=== PATIENT | female | born 1960 | race African-American/Black ===

== ENCOUNTER 2020-06-10 23:07 | Observation (INO) ==
[2020-06-10] MEDS ORDERED: FUROSEMIDE 20 MG TABLET PO STA (23:44)
[2020-06-10] MEDS ORDERED: FUROSEMIDE 40 MG/4 ML VIAL IV STA (23:55)
[2020-06-11 00:01] LABS: Basophils % 0.3 % (0.0-0.8); Eosinophils # 0.1 10*3/uL (0.0-0.87); Eosinophils % 0.5 % (0.00-10.9); Hemoglobin 9.2 GM/DL (12.0-16.0); Immature Granulocytes % 0.4 %; Immature Granulocytes Absolute 0.04 #; Lymphocytes # 1.1 10*3/uL (1.4-4.0); Lymphocytes % 11.4 % (21.3-54.2); Mean Corpuscular HGB Conc 30.7 GM/DL (32-36); Mean Corpuscular Volume 60.9 FL (87-102); Mean Platelet Volume 9.1 FL (9.6-12.0); Monocytes % 7.6 % (1.7-12.7); Neutrophils % 79.8 % (38.7-73.9); Platelet Count 343 T/CUMM (130-400); Red Blood Count 4.93 MC/CUMM (3.8-5.5); Red Cell Distribution Width 18.8 % (9.3-17.3); White Blood Count 9.2 T/CUMM (4-12)
[2020-06-11 00:30] LABS: Alanine Aminotransferase 44 U/L (13-56); Albumin 2.9 G/DL (3.4-5.0); Alkaline Phosphatase 128 U/L (45-117); Aspartate Amino Transferase 35 U/L (0-37); Bilirubin,Total < 0.39 MG/DL (0.2-1.0); Blood Urea Nitrogen 11 MG/DL (7-18); Estimated Glom Filtration Rate 74 ML/MIN; Glucose 194 MG/DL (74-106); Osmolality,Calculated 276.8 MOS/KG (273-304); Total Protein 7.2 G/DL (6.4-8.3)
[2020-06-11 00:55] LABS: INR 0.9; PT Patient Result 10.1 SECS (9.8-11.9)
[2020-06-11] MEDS ORDERED: ACETAMINOPHEN 325 MG TABLET PO PRN (01:06)
[2020-06-11] MEDS ORDERED: GLUCAGON 1 MG VIAL IM PRN (01:06)
[2020-06-11] MEDS ORDERED: ONDANSETRON 4 MG/2 ML VIAL IV PRN (01:06)
[2020-06-11] MEDS ORDERED: DEXTROSE 50% 25 GM/50 ML VIAL IV PRN (01:06)
[2020-06-11] MEDS: ENOXAPARIN 40 MG/0.4 ML SYRINGE SUBCUT SCH (01:26)
[2020-06-11 02:11] LABS: Anisocytosis Slight
[2020-06-11 02:12] LABS: Schistocytes Few
[2020-06-11 02:13] LABS: Platelet Estimate Adequate
[2020-06-11 04:35] LABS: Basophils % 0.3 % (0.0-0.8); Eosinophils # 0.1 10*3/uL (0.0-0.87); Eosinophils % 0.7 % (0.00-10.9); Hematocrit 28.3 VOL% (35.7-47.0); Hemoglobin 8.7 GM/DL (12.0-16.0); Immature Granulocytes % 0.4 %; Immature Granulocytes Absolute 0.03 #; Lymphocytes % 14.1 % (21.3-54.2); Mean Corpuscular HGB Conc 30.7 GM/DL (32-36); Mean Platelet Volume 8.9 FL (9.6-12.0); Monocytes % 8.8 % (1.7-12.7); Neutrophils % 75.7 % (38.7-73.9); Platelet Count 301 T/CUMM (130-400); Red Blood Count 4.64 MC/CUMM (3.8-5.5); Red Cell Distribution Width 18.6 % (9.3-17.3); White Blood Count 7.2 T/CUMM (4-12)
[2020-06-11 04:52] LABS: Calcium 8.5 MG/DL (8.5-10.1); Risk Ratio 3.33
[2020-06-11] MEDS: FUROSEMIDE 40 MG/4 ML VIAL IV SCH ×2 (08:25→16:26)
[2020-06-11] MEDS: INSULIN REGULAR 100 UNIT/ML SUBCUT SCH ×4 (08:25→21:29)
[2020-06-11] MEDS: PANTOPRAZOLE 40 MG TABLET PO SCH (11:00)
[2020-06-11] MEDS: LOSARTAN 25 MG TABLET PO SCH ×2 (11:00→21:36)
[2020-06-11] MEDS: POTASSIUM CHLORIDE 20 MEQ TABLET PO SCH ×2 (11:00→21:37)
[2020-06-11] MEDS: hydrALAZINE 25 MG TABLET PO SCH ×3 (11:00→21:36)
[2020-06-11] MEDS: ASPIRIN EC 81 MG TABLET PO SCH (11:00)
[2020-06-11] MEDS: carvediloL 6.25 MG TABLET PO SCH ×2 (11:00→21:36)
[2020-06-11] MEDS ORDERED: PNEUMOCOCCAL VACCINE (13 VALENT) 0.5 ML SYRINGE IM ONE (16:53)
[2020-06-11] MEDS: ISOSORBIDE MONONITRATE 30 MG TABLET PO SCH (17:42)
[2020-06-11] MEDS: oxyCODONE/ACETAMINOPHEN 5-325 MG TABLET PO PRN (17:43)
[2020-06-11] MEDS ORDERED: INSULIN GLARGINE 100 UNIT/ML SUBCUT SCH (21:00)
[2020-06-11] MEDS: POTASSIUM CHLORIDE 20 MEQ TABLET PO PRN ×2 (21:37→23:50)
[2020-06-12] MEDS: POTASSIUM CHLORIDE 20 MEQ TABLET PO PRN ×2 (01:32→03:52)
[2020-06-12] MEDS: ENOXAPARIN 40 MG/0.4 ML SYRINGE SUBCUT SCH (01:32)
[2020-06-12] MEDS: oxyCODONE/ACETAMINOPHEN 5-325 MG TABLET PO PRN ×2 (03:51→12:43)
[2020-06-12] MEDS: carvediloL 6.25 MG TABLET PO SCH (09:07)
[2020-06-12] MEDS: ISOSORBIDE MONONITRATE 30 MG TABLET PO SCH (09:07)
[2020-06-12] MEDS: hydrALAZINE 25 MG TABLET PO SCH (09:07)
[2020-06-12] MEDS: INSULIN REGULAR 100 UNIT/ML SUBCUT SCH ×2 (09:07→12:15)
[2020-06-12] MEDS: PANTOPRAZOLE 40 MG TABLET PO SCH (09:07)
[2020-06-12] MEDS: POTASSIUM CHLORIDE 20 MEQ TABLET PO SCH (09:07)
[2020-06-12] MEDS: FUROSEMIDE 40 MG/4 ML VIAL IV SCH (09:08)
[2020-06-12] MEDS: LOSARTAN 25 MG TABLET PO SCH (09:08)
[2020-06-12] MEDS: ASPIRIN EC 81 MG TABLET PO SCH (09:08)
[2020-06-12 10:11] LABS: Calcium 7.7 MG/DL (8.5-10.1)
[2020-06-12 10:17] LABS: Basophils % 0.6 % (0.0-0.8); Eosinophils # 0.1 10*3/uL (0.0-0.87); Eosinophils % 1.7 % (0.00-10.9); Hematocrit 29.4 VOL% (35.7-47.0); Immature Granulocytes % 0.2 %; Immature Granulocytes Absolute 0.01 #; Lymphocytes # 2.1 10*3/uL (1.4-4.0); Lymphocytes % 43.7 % (21.3-54.2); Mean Corpuscular HGB Conc 29.9 GM/DL (32-36); Mean Corpuscular Volume 62.3 FL (87-102); Monocytes % 16.6 % (1.7-12.7); Neutrophils % 37.2 % (38.7-73.9); Platelet Count 302 T/CUMM (130-400); Red Blood Count 4.72 MC/CUMM (3.8-5.5); Red Cell Distribution Width 18.5 % (9.3-17.3); White Blood Count 4.7 T/CUMM (4-12)
[2020-06-12 10:18] LABS: Hemoglobin 8.8 GM/DL (12.0-16.0)
[2020-06-12 10:21] LABS: Atypical Lymphocytes Few; Band Neutrophils 1 % (0-10); Eosinophils 1 % (0-10); Hypochromasia 2+; Lymphocytes 41 % (20-55); Microcytosis 1+; Segmented Neutrophils 41 % (50-85); Total Cells Counted 100
[2020-06-12 10:22] LABS: Ovalocytes Slight; Platelet Estimate Normal
[2020-06-12 12:08] VITALS: BP 100/58
== END 2020-06-12 15:12 | disposition home or self-care (01) ==
LOC: N.ED 23:07 → N.EDINP 23:07 → N.TELES 06-11 17:08
PROVIDERS: ADMIT Internal Medicine; ATTEND Internal Medicine

== ENCOUNTER 2021-03-06 15:48 | Inpatient (IN) ==
[2021-03-06] MEDS ORDERED: ONDANSETRON 4 MG/2 ML VIAL IV PRN (20:31)
[2021-03-06] MEDS ORDERED: GLUCAGON 1 MG VIAL IM PRN ×2 (20:31)
[2021-03-06] MEDS ORDERED: ALBUTEROL 2.5 MG/3 ML NEB RESP TX PRN (20:31)
[2021-03-06] MEDS ORDERED: NICOTINE 21 MG/24 HR PATCH TRANSDERM PRN (20:31)
[2021-03-06] MEDS ORDERED: ZALEPLON 5 MG CAPSULE PO PRN (20:31)
[2021-03-06] MEDS ORDERED: ACETAMINOPHEN 325 MG TABLET PO PRN (20:31)
[2021-03-06] MEDS ORDERED: hydrALAZINE 20 MG/1 ML VIAL IV PRN (20:31)
[2021-03-06] MEDS ORDERED: diphenhydrAMINE CAP 25 MG CAPSULE PO PRN (20:31)
[2021-03-06] MEDS ORDERED: DEXTROSE 50% 25 GM/50 ML VIAL IV PRN ×2 (20:31)
[2021-03-06 20:38] LABS: Basophils % 0.1 % (0.0-0.8); Eosinophils % 0.1 % (0.00-10.9); Hematocrit 31.1 VOL% (35.7-47.0); Hemoglobin 9.4 GM/DL (12.0-16.0); Immature Granulocytes % 0.9 %; Immature Granulocytes Absolute 0.09 #; Lymphocytes # 0.6 10*3/uL (1.4-4.0); Lymphocytes % 6.4 % (21.3-54.2); Mean Corpuscular HGB Conc 30.2 GM/DL (32-36); Mean Corpuscular Volume 68.2 FL (87-102); Mean Platelet Volume 9.8 FL (9.6-12.0); Monocytes % 1.5 % (1.7-12.7); NRBC # 0.02 10*3/uL; Platelet Count 366 T/CUMM (130-400); Red Blood Count 4.56 MC/CUMM (3.8-5.5); Red Cell Distribution Width 18.5 % (9.3-17.3); White Blood Count 9.9 T/CUMM (4-12)
[2021-03-06 20:56] LABS: Calcium 8.9 MG/DL (8.5-10.1); Osmolality,Calculated 290.1 MOS/KG (273-304); Potassium 3.1 MMOL/L (3.5-5.1)
[2021-03-06 21:07] LABS: Band Neutrophils 1 % (0-10); Lymphocytes 5 % (20-55); Segmented Neutrophils 93 % (50-85); Total Cells Counted 100
[2021-03-06 21:08] LABS: Hypochromasia 1+; Polychromasia Slight
[2021-03-06 21:09] LABS: Schistocytes Slight; Target Cells Slight
[2021-03-06 21:10] LABS: Anisocytosis 1+
[2021-03-06 21:11] LABS: Microcytosis 1+; Platelet Estimate Adequate
[2021-03-06] MEDS: FUROSEMIDE 40 MG/4 ML VIAL IV SCH (22:15)
[2021-03-06] MEDS: methylPREDNISolone SOD SUC 40 MG/1 ML VIAL IV SCH (22:18)
[2021-03-06] MEDS: INSULIN LISPRO 100 UNIT/ML SUBCUT SCH (22:21)
[2021-03-06] MEDS: HEPARIN 5,000 UNIT/1 ML VIAL SUBCUT SCH (22:23)
[2021-03-06] MEDS: DOCUSATE SODIUM 100 MG CAPSULE PO SCH (22:24)
[2021-03-06] MEDS: cefTRIAXone 1,000 MG in SODIUM CHLORIDE 0.9% 100 ML IV SCH (22:27)
[2021-03-06] MEDS: AZITHROMYCIN INJ 500 MG in SODIUM CHLORIDE 0.9% 250 ML IV SCH (23:09)
[2021-03-06] MEDS ORDERED: POTASSIUM CHLORIDE 20 MEQ TABLET PO ONE (23:35)
[2021-03-06 23:40] LABS: ABG Base Excess 1.6 MMOL/L (-2.5-2.5); ABG HCO3 25.8 MMOL/L (20-26); ABG Oxygen Saturation 86.7 % (95-100); ABG PCO2 38.9 MM HG (35-48); ABG PO2 52.6 MM HG (80-95)
[2021-03-07] MEDS: ALBUTEROL/IPRATROPIUM 3 ML NEB RESP TX SCH ×4 (00:21→19:56)
[2021-03-07] MEDS: MORPHINE 2 MG/1 ML SYRINGE IV PRN ×3 (00:25→22:04)
[2021-03-07] MEDS: guaiFENesin/DM ER 600-30 MG TABLET PO PRN (00:54)
[2021-03-07] MEDS: methylPREDNISolone SOD SUC 40 MG/1 ML VIAL IV SCH ×3 (05:50→21:59)
[2021-03-07] MEDS ORDERED: POLYETHYLENE GLYCOL POWDER 17 GM PACK PO PRN (05:58)
[2021-03-07 06:02] LABS: Basophils % 0.1 % (0.0-0.8); Hematocrit 28.9 VOL% (35.7-47.0); Immature Granulocytes % 0.6 %; Immature Granulocytes Absolute 0.05 #; Lymphocytes # 0.6 10*3/uL (1.4-4.0); Lymphocytes % 6.5 % (21.3-54.2); Mean Corpuscular HGB Conc 31.1 GM/DL (32-36); Mean Corpuscular Volume 68.2 FL (87-102); Mean Platelet Volume 11.2 FL (9.6-12.0); Monocytes % 1.2 % (1.7-12.7); Neutrophils % 91.6 % (38.7-73.9); Platelet Count 311 T/CUMM (130-400); Red Blood Count 4.24 MC/CUMM (3.8-5.5); Red Cell Distribution Width 18.3 % (9.3-17.3)
[2021-03-07 06:25] LABS: Anisocytosis 1+; Hypochromasia 1+; Lymphocytes 8 % (20-55); Segmented Neutrophils 90 % (50-85); Total Cells Counted 100
[2021-03-07 06:26] LABS: Platelet Estimate Increased
[2021-03-07 07:37] LABS: ABG Base Excess 1.1 MMOL/L (-2.5-2.5); ABG HCO3 25.9 MMOL/L (20-26); ABG Oxygen Saturation 91.5 % (95-100); ABG PCO2 41.8 MM HG (35-48); ABG PO2 64.7 MM HG (80-95); ABG TCO2 27.2 MMOL/L (23-27)
[2021-03-07] MEDS: INSULIN LISPRO 100 UNIT/ML SUBCUT SCH ×4 (10:44→21:06)
[2021-03-07] MEDS: carvediloL 6.25 MG TABLET PO SCH ×2 (10:45→20:41)
[2021-03-07] MEDS: LOSARTAN 25 MG TABLET PO SCH ×2 (10:45→20:41)
[2021-03-07] MEDS: GABAPENTIN 300 MG CAPSULE PO SCH ×2 (10:46→20:41)
[2021-03-07] MEDS: ISOSORBIDE MONONITRATE 30 MG TABLET PO SCH (10:46)
[2021-03-07] MEDS: SERTRALINE 25 MG TABLET PO SCH ×2 (10:47→20:41)
[2021-03-07] MEDS: HEPARIN 5,000 UNIT/1 ML VIAL SUBCUT SCH ×2 (10:49→20:53)
[2021-03-07] MEDS: ASPIRIN EC 81 MG TABLET PO SCH (10:49)
[2021-03-07] MEDS: DOCUSATE SODIUM 100 MG CAPSULE PO SCH ×2 (10:50→20:41)
[2021-03-07] MEDS: FERROUS SULFATE 325 MG TABLET PO SCH ×2 (10:51→20:41)
[2021-03-07] MEDS: FUROSEMIDE 40 MG/4 ML VIAL IV SCH ×2 (11:00→20:46)
[2021-03-07 12:17] LABS: Alanine Aminotransferase 68 U/L (13-56); Albumin 2.4 G/DL (3.4-5.0); Alkaline Phosphatase 158 U/L (45-117); Aspartate Amino Transferase 31 U/L (0-37); Bilirubin,Total < 0.39 MG/DL (0.20-1.00); Blood Urea Nitrogen 24 MG/DL (7-18); Calcium 8.6 MG/DL (8.5-10.1); Carbon Dioxide 28 MMOL/L (21-32); Estimated Glom Filtration Rate 69 ML/MIN; Glucose 303 MG/DL (74-106); Osmolality,Calculated 297.1 MOS/KG (273-304); Potassium 4.3 MMOL/L (3.5-5.1); Sodium 142 MMOL/L (136-145); Total Protein 6.4 G/DL (6.4-8.2)
[2021-03-07] MEDS ORDERED: INSULIN LISPRO 100 UNIT/ML SUBCUT SCH (15:00)
[2021-03-07] MEDS ORDERED: INSULIN REGULAR 100 UNIT/ML IV ONE (16:37)
[2021-03-07] MEDS: traZODone 50 MG TABLET PO SCH (20:41)
[2021-03-07] MEDS: cefTRIAXone 1,000 MG in SODIUM CHLORIDE 0.9% 100 ML IV SCH (20:52)
[2021-03-07] MEDS: INSULIN GLARGINE 100 UNIT/ML SUBCUT SCH (20:53)
[2021-03-07] MEDS: AZITHROMYCIN INJ 500 MG in SODIUM CHLORIDE 0.9% 250 ML IV SCH (22:08)
[2021-03-08] MEDS: ALBUTEROL/IPRATROPIUM 3 ML NEB RESP TX SCH ×4 (00:56→20:28)
[2021-03-08] MEDS: methylPREDNISolone SOD SUC 40 MG/1 ML VIAL IV SCH ×3 (04:27→20:10)
[2021-03-08 05:10] LABS: Basophils % 0.1 % (0.0-0.8); Hemoglobin 8.4 GM/DL (12.0-16.0); Immature Granulocytes Absolute 0.11 #; Lymphocytes # 0.7 10*3/uL (1.4-4.0); Lymphocytes % 6.1 % (21.3-54.2); Mean Corpuscular Volume 69.3 FL (87-102); Mean Platelet Volume 10.8 FL (9.6-12.0); Monocytes % 1.3 % (1.7-12.7); NRBC # 0.02 10*3/uL; Neutrophils % 91.5 % (38.7-73.9); Platelet Count 350 T/CUMM (130-400); Red Blood Count 4.04 MC/CUMM (3.8-5.5); Red Cell Distribution Width 18.4 % (9.3-17.3); White Blood Count 11.1 T/CUMM (4-12)
[2021-03-08 05:33] LABS: Calcium 8.5 MG/DL (8.5-10.1); Osmolality,Calculated 298.5 MOS/KG (273-304)
[2021-03-08 05:42] LABS: % Iron Saturation 29.3 % (18-50); Ferritin 21.5 ng/mL (8-252)
[2021-03-08 05:52] LABS: Lymphocytes 5 % (20-55); Segmented Neutrophils 93 % (50-85)
[2021-03-08 05:53] LABS: Hypochromasia 1+; Microcytosis 2+; Platelet Estimate Normal; Total Cells Counted 100
[2021-03-08] MEDS ORDERED: INSULIN REGULAR 100 UNIT/ML SUBCUT ONE (08:30)
[2021-03-08] MEDS ORDERED: POLYETHYLENE GLYCOL POWDER 17 GM PACK PO PRN (09:00)
[2021-03-08] MEDS: FUROSEMIDE 40 MG/4 ML VIAL IV SCH (09:38)
[2021-03-08] MEDS: INSULIN LISPRO 100 UNIT/ML SUBCUT SCH ×4 (09:38→21:55)
[2021-03-08] MEDS: DOCUSATE SODIUM 100 MG CAPSULE PO SCH ×2 (09:39→20:14)
[2021-03-08] MEDS: SERTRALINE 25 MG TABLET PO SCH ×2 (09:39→20:13)
[2021-03-08] MEDS: GABAPENTIN 300 MG CAPSULE PO SCH ×2 (09:39→20:13)
[2021-03-08] MEDS: LOSARTAN 25 MG TABLET PO SCH ×2 (09:39→20:14)
[2021-03-08] MEDS: ASPIRIN EC 81 MG TABLET PO SCH (09:39)
[2021-03-08] MEDS: ISOSORBIDE MONONITRATE 30 MG TABLET PO SCH (09:39)
[2021-03-08] MEDS: carvediloL 6.25 MG TABLET PO SCH ×2 (09:39→20:14)
[2021-03-08] MEDS: FERROUS SULFATE 325 MG TABLET PO SCH ×2 (09:39→20:14)
[2021-03-08] MEDS: HEPARIN 5,000 UNIT/1 ML VIAL SUBCUT SCH ×2 (09:42→20:13)
[2021-03-08] MEDS: MORPHINE 2 MG/1 ML SYRINGE IV PRN ×2 (10:49→18:31)
[2021-03-08] MEDS: metroNIDAZOLE 500 MG TABLET PO SCH ×2 (16:04→21:55)
[2021-03-08] MEDS: traZODone 50 MG TABLET PO SCH (20:14)
[2021-03-08] MEDS: cefTRIAXone 1,000 MG in SODIUM CHLORIDE 0.9% 100 ML IV SCH (20:20)
[2021-03-08] MEDS: INSULIN GLARGINE 100 UNIT/ML SUBCUT SCH (21:55)
[2021-03-08] MEDS: AZITHROMYCIN INJ 500 MG in SODIUM CHLORIDE 0.9% 250 ML IV SCH (21:55)
[2021-03-09] MEDS: ALBUTEROL/IPRATROPIUM 3 ML NEB RESP TX SCH ×4 (01:20→20:28)
[2021-03-09] MEDS: methylPREDNISolone SOD SUC 40 MG/1 ML VIAL IV SCH (05:29)
[2021-03-09] MEDS: metroNIDAZOLE 500 MG TABLET PO SCH ×3 (05:31→22:36)
[2021-03-09 05:41] LABS: Basophils % 0.1 % (0.0-0.8); Hematocrit 28.6 VOL% (35.7-47.0); Hemoglobin 8.8 GM/DL (12.0-16.0); Immature Granulocytes % 0.7 %; Immature Granulocytes Absolute 0.07 #; Lymphocytes # 1.1 10*3/uL (1.4-4.0); Mean Corpuscular HGB Conc 30.8 GM/DL (32-36); Mean Corpuscular Volume 68.9 FL (87-102); Mean Platelet Volume 10.9 FL (9.6-12.0); Monocytes % 3.5 % (1.7-12.7); NRBC # 0.03 10*3/uL; Neutrophils % 84.7 % (38.7-73.9); Platelet Count 340 T/CUMM (130-400); Red Blood Count 4.15 MC/CUMM (3.8-5.5); Red Cell Distribution Width 18.3 % (9.3-17.3); White Blood Count 9.6 T/CUMM (4-12)
[2021-03-09 06:07] LABS: Calcium 8.3 MG/DL (8.5-10.1); Osmolality,Calculated 292.1 MOS/KG (273-304); Potassium 3.8 MMOL/L (3.5-5.1)
[2021-03-09 06:19] LABS: Folate 11.89 NG/ML (5.38-24.0)
[2021-03-09] MEDS: INSULIN LISPRO 100 UNIT/ML SUBCUT SCH ×4 (08:09→22:38)
[2021-03-09] MEDS ORDERED: FUROSEMIDE 40 MG/4 ML VIAL IV SCH (09:00)
[2021-03-09] MEDS: SERTRALINE 25 MG TABLET PO SCH ×2 (10:39→22:36)
[2021-03-09] MEDS: HEPARIN 5,000 UNIT/1 ML VIAL SUBCUT SCH ×2 (10:39→22:39)
[2021-03-09] MEDS: LOSARTAN 25 MG TABLET PO SCH ×2 (10:39→22:36)
[2021-03-09] MEDS: GABAPENTIN 300 MG CAPSULE PO SCH ×2 (10:41→22:37)
[2021-03-09] MEDS: carvediloL 6.25 MG TABLET PO SCH ×2 (10:42→22:36)
[2021-03-09] MEDS: ISOSORBIDE MONONITRATE 30 MG TABLET PO SCH (10:42)
[2021-03-09] MEDS: DOCUSATE SODIUM 100 MG CAPSULE PO SCH ×2 (10:42→22:36)
[2021-03-09] MEDS: ASPIRIN EC 81 MG TABLET PO SCH (10:43)
[2021-03-09] MEDS: FERROUS SULFATE 325 MG TABLET PO SCH ×2 (10:43→22:37)
[2021-03-09] MEDS: MORPHINE 2 MG/1 ML SYRINGE IV PRN ×2 (12:54→22:38)
[2021-03-09] MEDS: guaiFENesin/DM ER 600-30 MG TABLET PO PRN (12:55)
[2021-03-09] MEDS: FUROSEMIDE 40 MG/4 ML VIAL IV SCH (15:55)
[2021-03-09] MEDS: cefTRIAXone 1,000 MG in SODIUM CHLORIDE 0.9% 100 ML IV SCH (22:35)
[2021-03-09] MEDS: predniSONE 20 MG TABLET PO SCH (22:36)
[2021-03-09] MEDS: traZODone 50 MG TABLET PO SCH (22:37)
[2021-03-09] MEDS: INSULIN GLARGINE 100 UNIT/ML SUBCUT SCH (22:39)
[2021-03-10] MEDS: ALBUTEROL/IPRATROPIUM 3 ML NEB RESP TX SCH ×4 (00:44→20:32)
[2021-03-10] MEDS: AZITHROMYCIN INJ 500 MG in SODIUM CHLORIDE 0.9% 250 ML IV SCH ×2 (03:15→21:57)
[2021-03-10] MEDS: metroNIDAZOLE 500 MG TABLET PO SCH ×3 (06:09→21:51)
[2021-03-10] MEDS: LOSARTAN 25 MG TABLET PO SCH ×2 (09:00→20:33)
[2021-03-10] MEDS: SERTRALINE 25 MG TABLET PO SCH ×2 (09:28→20:33)
[2021-03-10] MEDS: DOCUSATE SODIUM 100 MG CAPSULE PO SCH ×2 (09:29→20:34)
[2021-03-10] MEDS: predniSONE 20 MG TABLET PO SCH ×2 (09:29→20:33)
[2021-03-10] MEDS: FERROUS SULFATE 325 MG TABLET PO SCH ×2 (09:30→20:33)
[2021-03-10] MEDS: ASPIRIN EC 81 MG TABLET PO SCH (09:30)
[2021-03-10] MEDS: HEPARIN 5,000 UNIT/1 ML VIAL SUBCUT SCH ×2 (09:31→20:47)
[2021-03-10] MEDS: INSULIN LISPRO 100 UNIT/ML SUBCUT SCH ×4 (09:33→20:35)
[2021-03-10] MEDS: ISOSORBIDE MONONITRATE 30 MG TABLET PO SCH (09:35)
[2021-03-10] MEDS: carvediloL 6.25 MG TABLET PO SCH ×2 (09:48→20:33)
[2021-03-10] MEDS: NICOTINE 21 MG/24 HR PATCH TRANSDERM SCH (09:48)
[2021-03-10] MEDS: POLYETHYLENE GLYCOL POWDER 17 GM PACK PO SCH (09:49)
[2021-03-10] MEDS ORDERED: ALUMINUM/MAGNES/SIMETH MAX STR 30 ML UDCUP PO PRN (10:53)
[2021-03-10] MEDS: FUROSEMIDE 40 MG/4 ML VIAL IV SCH ×2 (11:41→17:40)
[2021-03-10] MEDS: PANTOPRAZOLE 40 MG TABLET PO SCH (11:42)
[2021-03-10] MEDS: GABAPENTIN 300 MG CAPSULE PO SCH ×2 (11:54→20:34)
[2021-03-10] MEDS ORDERED: LACTULOSE 20 GM/30 ML UDCUP PO PRN (17:42)
[2021-03-10] MEDS: traZODone 50 MG TABLET PO SCH (20:33)
[2021-03-10] MEDS: INSULIN GLARGINE 100 UNIT/ML SUBCUT SCH (20:35)
[2021-03-10] MEDS: cefTRIAXone 1,000 MG in SODIUM CHLORIDE 0.9% 100 ML IV SCH (20:44)
[2021-03-11] MEDS: ALBUTEROL/IPRATROPIUM 3 ML NEB RESP TX SCH ×3 (00:22→13:20)
[2021-03-11] MEDS: MORPHINE 2 MG/1 ML SYRINGE IV PRN (01:28)
[2021-03-11 05:08] LABS: Basophils % 0.1 % (0.0-0.8); Hematocrit 30.5 VOL% (35.7-47.0); Hemoglobin 9.5 GM/DL (12.0-16.0); Immature Granulocytes % 1.8 %; Immature Granulocytes Absolute 0.17 #; Lymphocytes # 0.8 10*3/uL (1.4-4.0); Lymphocytes % 8.9 % (21.3-54.2); Mean Corpuscular HGB Conc 31.1 GM/DL (32-36); Mean Corpuscular Volume 68.4 FL (87-102); Mean Platelet Volume 10.9 FL (9.6-12.0); Monocytes % 5.2 % (1.7-12.7); NRBC # 0.03 10*3/uL; Platelet Count 339 T/CUMM (130-400); Red Blood Count 4.46 MC/CUMM (3.8-5.5); Red Cell Distribution Width 19.2 % (9.3-17.3); White Blood Count 9.4 T/CUMM (4-12)
[2021-03-11 05:19] LABS: Calcium 8.1 MG/DL (8.5-10.1); Osmolality,Calculated 287.7 MOS/KG (273-304); Potassium 3.8 MMOL/L (3.5-5.1)
[2021-03-11 05:26] LABS: Hypochromasia 1+; Microcytosis 1+; Platelet Estimate Adequate
[2021-03-11] MEDS: metroNIDAZOLE 500 MG TABLET PO SCH ×2 (05:47→13:02)
[2021-03-11] MEDS: INSULIN LISPRO 100 UNIT/ML SUBCUT SCH ×3 (08:15→16:28)
[2021-03-11] MEDS: FUROSEMIDE 40 MG/4 ML VIAL IV SCH (08:54)
[2021-03-11] MEDS: POLYETHYLENE GLYCOL POWDER 17 GM PACK PO SCH (09:18)
[2021-03-11] MEDS: NICOTINE 21 MG/24 HR PATCH TRANSDERM SCH (09:20)
[2021-03-11] MEDS: SERTRALINE 25 MG TABLET PO SCH (09:20)
[2021-03-11] MEDS: ASPIRIN EC 81 MG TABLET PO SCH (09:20)
[2021-03-11] MEDS: carvediloL 6.25 MG TABLET PO SCH (09:20)
[2021-03-11] MEDS: DOCUSATE SODIUM 100 MG CAPSULE PO SCH (09:20)
[2021-03-11] MEDS: GABAPENTIN 300 MG CAPSULE PO SCH (09:20)
[2021-03-11] MEDS: predniSONE 20 MG TABLET PO SCH (09:20)
[2021-03-11] MEDS: LOSARTAN 25 MG TABLET PO SCH (09:21)
[2021-03-11] MEDS: PANTOPRAZOLE 40 MG TABLET PO SCH (09:21)
[2021-03-11] MEDS: FERROUS SULFATE 325 MG TABLET PO SCH (09:21)
[2021-03-11] MEDS: ISOSORBIDE MONONITRATE 30 MG TABLET PO SCH (09:21)
[2021-03-11] MEDS: HEPARIN 5,000 UNIT/1 ML VIAL SUBCUT SCH (09:21)
[2021-03-11 12:30] VITALS: BP 135/98
[2021-03-11] MEDS ORDERED: FUROSEMIDE 40 MG TABLET PO SCH (16:00)
[2021-03-11] MEDS ORDERED: carvediloL 12.5 MG TABLET PO SCH (21:00)
== END 2021-03-11 16:18 | disposition home or self-care (01) | DRG 291 ==
LOC: N.TELEN 19:47 → SUATTDRO 19:47 → N.TELEN 19:53
PROVIDERS: ADMIT Internal Medicine; ATTEND Internal Medicine